=== PATIENT | female | born 1945 | race Caucasian/White ===

== ENCOUNTER → 2017-08-17 16:59 | Outpatient (CLI) | payer MEDICARE ==
[2014-01-13 12:16] VITALS: BMI 33.7
[~2017-08-17 16:59] MED LIST: ASPIRIN 81 MG E81 MG PO; BOUDREAUXS113 GM TP; CELEXA20 MG PO; DEPAKOTE500 MG PO; FLORANEX / LACT1 TAB OR; GLIPIZIDE10 MG PO; GLUCOPHAGE500 MG PO; HUMALOG 30100 UNITS/ SQ; LANTUS SOL100 UNIT/1 SQ; LEVAQUIN500 MG PO; LIDODERM 5 %1 PATCH TD; MULTI-DAY VITAM1 TAB PO; MYCELEX TROCHE10 MG PO; MYCOSTATIN15 GM TP; PEPCID20 MG PO; PEPCID40 MG PO; PERPHENAZINE2 MG OR; REQUIP0.5 MG PO; SENNA-C8.6 MG; TOPROL XL100 MG PO; ULTRAM50 MG PO; ZANTAC150 MG PO; ZESTRIL40 MG PO; ZOCOR10 MG PO; ZYVOX600 MG PO
== END | disposition home or self-care (01) ==
LOC: D.MAMMO 13:15
DX: Z12.31 Encounter for screening mammogram for malignant neoplasm of breast (principal)

== ENCOUNTER → 2018-10-03 14:21 | Outpatient (CLI) | payer MEDICARE ==
[2014-01-13 12:16] VITALS: BMI 33.7
[2018-10-03 15:45] LABS: T4 THYROXIN - FREE 1.82 ng/dL (0.76-1.46); THYROID STIMULATING HORMONE 0.01 uIU/mL (0.36-3.74)
== END | disposition home or self-care (01) ==
LOC: D.LABREF 14:21
PROVIDERS: Internal Medicine Endocrinology, Diabetes & Metabolism
DX: E05.00 Thyrotoxicosis with diffuse goiter without thyrotoxic crisis or storm (principal)